=== PATIENT | male | born 1950 | race Caucasian/White ===

== ENCOUNTER 2017-05-14 10:24 | Emergency (ER) | payer MEDICARE ==
[2017-05-14 10:42] VITALS: TEMP 98.6; O2SAT 98
--- NOTE | 2017-05-14 11:21 | RAD ---
EXAM DESCRIPTION: Ankle,Left 3 Views CLINICAL HISTORY: 67 years Male, ankle pain and swelling COMPARISON: None. FINDINGS: 3 views of the left ankle show lateral soft tissue swelling without medial or lateral malleolar fracture. The tibiotalar joint space and talar dome are well-maintained. There is markedly abnormal appearance of the subtalar joint and calcaneus. Is a bone fragment posterior to the talus which does not appear acute. IMPRESSION: Lateral soft tissue swelling without underlying lateral malleolar fracture. Markedly abnormal appearance of the hindfoot suggestive of remote trauma including talar and/or calcaneal fracture. If clinically suspicious of acute hindfoot injury, CT or MRI recommended. Electronically signed by: Lincoln Mchugh MD 05/14/2017 11:19 AM CDT Workstation: [email or web address]
--- NOTE | 2017-05-14 11:35 | ED.PDOC ---
History of Present Illness - General Chief Complaint: Lower Extremity Injury Time Seen by Provider: 05/14/17 10:46 Source: patient Exam Limitations: no limitations - History of Present Illness Initial Comments: the patient is a 67-year-old male presenting to the emergency room secondary toleft ankle and foot pain The patient has recently started a new job and has had to walk extensively for the first few days of it. 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 He has not had this level of activity on it in a long time. He did notinjure it at work that he knows of this week. He simply used a lot. At no point did he have any acute pain. He is neurovascularly preserved. There is some swelling around the ankle and foot. He has some discomfort palpation surrounding the lateral and medial malleolus as well as the foot posteriorly. There is some soreness with both active and passive range of motion. No crepitus. No bruising. No obvious new deformity. Timing/Duration: 24 hours Severity: moderate Improving Factors: immobilization Worsening Factors: movement Associated Symptoms: denies symptoms Allergies/Adverse Reactions: Allergies NO KNOWN ALLERGY Allergy (Verified 05/14/17 10:42) Review of Systems - Review of Systems Constitutional: States: no symptoms reported EENTM: States: no symptoms reported Respiratory: States: no symptoms reported Cardiology: States: no symptoms reported Gastrointestinal/Abdominal: States: no symptoms reported Genitourinary: States: no symptoms reported Musculoskeletal: States: see HPI Skin: States: no symptoms reported Neurological: States: no symptoms reported Endocrine: States: no symptoms reported Past Medical History (General) - Patient Medical History Hx Hypertension: Yes Hx Diabetes: Yes Surgical History: other - Social History Hx Tobacco Use: No Hx Alcohol Use: No Hx Substance Use: No Hx Substance Use Treatment: No Hx Depression: No Family Medical History - Family History Mother Family History: Unknown Physical Exam - Physical Exam General Appearance: Alert, Comfortable, No apparent distress Eye Exam: bilateral normal Ears, Nose, Throat: hearing grossly normal Neck: full range of motion Respiratory: no respiratory distress, no accessory muscle use Cardiovascular/Chest: normal peripheral pulses Peripheral Pulses: dorsalis pedis,right: 2+, dorsalis pedis,left: 2+, posterior tibialis,right: 2+, posterior tibialis,left: 2+ Gastrointestinal/Abdominal: other - obese Rectal Exam: deferred Extremity: normal range of motion, no calf tenderness, normal capillary refill, other - the patient does have +1 edema to bilateral lower extremities. Left ankle and foot as described above. 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 This appears to be a flare of osteoarthritis at a previous injury site. The patient is to avoid walking extensively over the next 3-4 days. Ibuprofen or Aleve can be used with food to help reduce discomfort. additionally wrapping with an Andrey wrap during the day may also help to reduce swelling and discomfort. ER warnings were given. No obvious new fracture or dislocation is seen on x-ray. Chronic changes from previous injuries are noted. Departure - Departure Clinical Impression: Localized osteoarthrosis, ankle and foot Qualifiers: Laterality: left Qualified Code(s): M19.072 - Primary osteoarthritis, left ankle and foot Disposition: Discharge to Home or Self Care Condition: Fair Departure Forms: ED Discharge - Pt. Copy, Patient Portal Self Enrollment Instructions: DI for Arthritis Diet: regular diet Activity: increase activity as tolerated Referrals: Humberto Devlin MD [Primary Care Provider] - 1-2 Weeks Additional Instructions: the patient is 67-year-old male presenting secondary to left ankle and foot pain after a marked increase in usage at his new job. This appears to be a flare of osteoarthritis at a previous injury site. The patient is to avoid walking extensively over the next 3-4 days. Ibuprofen or Aleve can be used with food to help reduce discomfort. additionally wrapping with an Andrey wrap during the day may also help to reduce swelling and discomfort. ER warnings were given. No obvious new fracture or dislocation is seen on x-ray. Chronic changes from previous injuries are noted.
[2017-05-14 12:07] VITALS: BP 124/74
== END 2017-05-14 12:07 | disposition home or self-care (01) ==
LOC: ER 10:24
DX: M19.072 Primary osteoarthritis, left ankle and foot (principal); I10 Essential (primary) hypertension; E11.9 Type 2 diabetes mellitus without complications

== ENCOUNTER 2018-03-20 22:54 | Emergency (ER) | payer MEDICARE ==
[2018-03-20 23:14] VITALS: BP 111/76; TEMP 98; O2SAT 95
--- NOTE | 2018-03-20 23:16 | ED.PDOC ---
History of Present Illness - General Chief Complaint: ENT Problem Stated Complaint: rt ear bleed Time Seen by Provider: 03/20/18 23:03 Source: patient Exam Limitations: no limitations - History of Present Illness Initial Comments: after a shower earlier tonight he trimmed his ears with an electric january. afterwards he thought he saw blood & his hearing was decreased. he thinks he cut himself with the january & since he is a diabetic & he was worried about infection. Timing/Duration: abrupt, this evening Severity: mild EENT Location: ear (R) Prearrival Treatment: no prearrival treatment Improving Factors: nothing Worsening Factors: nothing Associated Symptoms: change in hearing Allergies/Adverse Reactions: Allergies NO KNOWN ALLERGY Allergy (Verified 05/14/17 10:42) Review of Systems - Review of Systems Constitutional: States: no symptoms reported EENTM: States: see HPI, ear discharge, other - right ear feels clogged. Denies : ear pain Past Medical History (General) - Patient Medical History Hx Hypertension: Yes Hx Diabetes: Yes Surgical History: other - Vaccination History Hx Tetanus, Diphtheria Vaccination: No Hx Influenza Vaccination: No Hx Pneumococcal Vaccination: No - Social History Hx Tobacco Use: Yes - now uses electric ones Hx Alcohol Use: No Hx Substance Use: No Hx Substance Use Treatment: No Hx Depression: No - Female History Patient is a Female of Child Bearing Age (10 -59 yrs old): No Patient : No Family Medical History - Family History Mother Family History: Unknown Physical Exam - Physical Exam General Appearance: Alert, Comfortable, No apparent distress, Other - no mastoid pain Ear Exam: right ear: auricle normal, canal normal, other - cerumen impaction, no wound or blood seen Nasal Exam: normal inspection Neck: supple, normal inspection Neurologic: alert, normal mood/affect, oriented x 3 Skin Exam: normal color, warm/dry Progress - Progress Progress: 03/21/18 06:38 cerumen impaction otherwise normal; instructed on sxs of OE to be aware of Departure - Departure Clinical Impression: Cerumen impaction Qualifiers: Laterality: right Qualified Code(s): H61.21 - Impacted cerumen, right ear Disposition: Discharge to Home or Self Care Condition: Fair Departure Forms: ED Discharge - Pt. Copy, Patient Portal Self Enrollment Instructions: DI for Ear Pain-Adult Comments: follow up with your doctor for any pain or new symptoms
== END 2018-03-20 23:23 | disposition home or self-care (01) ==
LOC: ER 22:54
DX: H61.21 Impacted cerumen, right ear (principal); I10 Essential (primary) hypertension; E11.9 Type 2 diabetes mellitus without complications; F17.290 Nicotine dependence, other tobacco product, uncomplicated

== ENCOUNTER → 2018-04-23 | Outpatient (CLI) | payer MEDICARE ==
--- NOTE | 2018-04-23 21:31 | MRI ---
EXAM DESCRIPTION: Lumbar Spine w/o Contrast : Magnetic Resonance Imaging. CLINICAL HISTORY: DEGENERATION OF VERTEBRAL DISC COMPARISON: None. TECHNIQUE: Multiplanar, multiple standard sequences, non contrast MRI, lumbar spine. FINDINGS: For the purposes of this report, the L5 vertebra is considered to be transitional and partially sacralized. Designation level of conus termination is T12-L1. L5-S1 disc is best seen on T2 axial sequence, image 2. Disc is desiccated and posterior disc space is rudimentary. No disc bulging. Sacralization of the bilateral foramina and facets. No canal or foraminal stenosis. L4-5: Moderate disc space loss and diffuse desiccation. Anterior disc osteophyte bulge as well as posterior disc osteophyte bulge 5 mm to the left of midline encroaching on the descending left L5 nerve and left lateral recess stenosis. Trace retrolisthesis. Disc osteophyte complex encroaching on the right foramen which is stenotic and encroaching on the exiting right L4 nerve. Moderate stenosis left foramen and impingement of the left L4 nerve. L3-4: Disc desiccation and anterior bulge with endplate ridging. Posterior tiny broad-based 3 mm bulge. Trace retrolisthesis. Modic type I endplate reactive changes to the right of midline with disc osteophyte complex encroaching on the foramen and soft tissues moderate foraminal narrowing. Mild to moderate left foraminal narrowing. Right side flavum ligament hypertrophy and facet arthrosis. Mild canal narrowing. L2-3: Disc desiccation anterior bulging and endplate ridging. Posterior tiny disc bulge is broad-based. Moderate flavum ligament hypertrophy and facet arthrosis encroaching on the posterior thecal sac. AP canal diameter 9 mm. Bilateral mild foraminal narrowing more on the right. Large concavity in the superior L2 endplate almost 50% in depth with no marrow edema in the vertebral body or bilateral pedicles. Minimal marrow edema superior endplate anteriorly. Approximately 2 mm retropulsion. L1-2: Desiccation of the disc with minimal fluid in the defect of the S2 endplate. No significant bulging. Minimal facet arthrosis. Bilateral foramina are patent. T12-L1: Trace anterolisthesis. Anterior disc bulging and endplate ridging. Minimal disc desiccation. Minimal posterior disc bulge. Mild canal narrowing. Bilateral mild ligament hypertrophy abutting the conus which terminates at this level. Bilateral mild foraminal narrowing. Spondylosis endplate changes and Schmorl's nodes and bulging disc posteriorly also at T11-12 but no canal or foraminal stenosis. L2-L4 levoscoliosis. Paravertebral soft tissues minimal muscle atrophy paraspinal region.. Normal marrow signal in the remaining vertebral bodies and the posterior elements. Vertebral bodies are not compressed at any level. IMPRESSION: 1. 4 lumbar type vertebra with L5 partially sacralized. L5-S1 disc space is relatively rudimentary posteriorly. No disc bulging. No canal or foraminal stenosis. Consider correlation with 3 view lumbosacral spine series; AP and lateral thoracic spine series for rib counting purposes. 2. Right posterior disc osteophyte bulge to the left of midline encroaching on the left subarticular recess which is stenotic and the left L5 nerve. Spondylosis on the right disc space encroaching on the foramen and the exiting right L4 nerve. Facet and disc encroaching on the left foramen and the left L4 nerve. 3. Mild spondylosis L3-4 on the right with disc osteophyte complex causing moderate foraminal narrowing. Mild canal narrowing. 4. Posterior elements at L2-3 with hypertrophy and arthrosis and bulging disc resulting in mild canal stenosis. 5. Old compression injury of the superior L2 endplate with minimal spondylosis. No canal stenosis at L1-2. Spondylosis T12-L1 and T11-12. L2 4 levoscoliosis. Electronically signed by: Santosh Horta MD 04/23/2018 9:29 PM CDT
== END ==
LOC: MRI 10:21
PROVIDERS: ATTEND Nurse Practitioner Family
DX: M51.36 Other intervertebral disc degeneration, lumbar region (principal); M48.061 Spinal stenosis, lumbar region without neurogenic claudication

== ENCOUNTER → 2019-03-22 | Outpatient (CLI) | payer MEDICARE, MEDICAID ==
--- NOTE | 2019-03-22 11:24 | MRI ---
EXAM DESCRIPTION: MR arthrogram left shoulder CLINICAL HISTORY: Shoulder pain COMPARISON: None. TECHNIQUE: Multiplanar, multisequence MR images of the left shoulder with intra-articular gadolinium contrast FINDINGS: Structurally significant high-grade partial tear of the supraspinatus tendon. Diffuse tendinosis. High-grade interstitial insertional tear spans 1.3 cm craniocaudal with interstitial retraction about 5 mm. Muscle volume is mildly decreased with grade 2 fatty infiltration Infraspinatus tendinosis. Partial articular and interstitial tear anteriorly from the myotendinous junction to the insertion. A tiny resorptive cyst at the anterior articular insertion. Minimal fluid tracks back along the anterior myotendinous junction. Muscle volume is mildly decreased with grade 2 fatty infiltration. Teres minor tendon intact with moderate muscle volume loss and grade 2 fatty aeration. High-grade subscapularis tendon tear sparing thin bursal fibers. Moderate muscle volume loss and grade 2 fatty infiltration Long head biceps tendon subluxation over the lesser tuberosity with a cyst and mild edema in the lesser tuberosity. Long head biceps tendinosis and short segment interstitial partial tear at the level of subluxation. Tear of the labral anchor/superior labrum with a small sublabral cyst in the superior glenoid rim. Blunting of the posterior superior labrum. Intralabral signal and mild fraying of the articular surface of the posterior labrum with a radial component of tear posterior inferior. A tiny paralabral cyst along the posterior glenoid rim. Anterior sublabral glenoid rim osteophyte ridge with blunting and partial detachment of the anterior and inferior labrum. Moderate acromioclavicular osteoarthritis. Joint effusion. Distal clavicular osteophyte indents the supraspinatus. Small inferior lateral acromial spur IMPRESSION: Structurally significant high-grade partial interstitial tear of the supraspinatus tendon superimposed on diffuse tendinosis Partial articular and interstitial tear of the anterior infraspinatus tendon High-grade partial tear of the subscapularis tendon. Complete tear from the lesser tuberosity with intact bursal fibers to the greater tuberosity. Associated subluxation partial tear of the long head biceps tendon Circumferential labral degeneration Electronically signed by: Tyree Yeung MD 03/22/2019 11:22 AM CDT
--- NOTE | 2019-03-22 13:34 | RAD ---
EXAM DESCRIPTION: Arthrogram Shoulder Left: RF. CLINICAL HISTORY: PAIN IN LEFT SHOULDER COMPARISON: Post-arthrogram MRI scan of the left shoulder same date. TECHNIQUE: The procedure was explained to the patient with risks and benefits. The patient gave verbal and written consent. Patient supine on the fluoroscopic table with left shoulder in external rotation. The anterior mid superior left glenohumeral joint was localized by fluoroscopy. The skin was marked, then prepped and draped in a sterile fashion. 4 mL of 1% xylocaine , given intradermally and intramuscularly. 5 cc of nonionic contrast was prepared in a syringe. A mixture of 10 cc nonionic contrast, 10 cc of sterile normal saline and 0.1% gadolinium was prepared in a second syringe. A 1.5 cm, 25-gauge needle was introduced into the anterior superior left glenohumeral joint capsule under fluoroscopic visualization. A test injection of 2 cc of the contrast only was performed under fluoroscopy. Additional 8 cc of the contrast mixture was then injected under fluoroscopy. The patient tolerated the procedure well. Patient performed active exercise to distribute the contrast mixture in the joint space. Patient was transferred to the high field MRI suite for multiplanar imaging. No immediate complications. Fluoroscopy time was 1.2 minutes. DAP 4.568 Gy-cm2. Single frontal AP image of left shoulder in external rotation obtained. IMPRESSION: Successful, fluoroscopic-guided arthrogram of the left shoulder prior to MRI scan. Permanent images from this procedure are maintained in the patient's medical record. Electronically signed by: Santosh Horta MD 03/22/2019 1:32 PM CDT
== END ==
LOC: MRI 08:30
PROVIDERS: ATTEND Nurse Practitioner Family
DX: S46.012A Strain of muscle(s) and tendon(s) of the rotator cuff of left shoulder, initial encounter (principal); S46.212A Strain of muscle, fascia and tendon of other parts of biceps, left arm, initial encounter

== ENCOUNTER → 2019-05-12 | Outpatient (CLI) | payer MEDICARE, MEDICAID ==
--- NOTE | 2019-05-12 15:22 | US ---
EXAM DESCRIPTION: Aorta: Ultrasound. CLINICAL HISTORY: AAA SCREENING COMPARISON: MRI lumbar spine 03/24/2018. TECHNIQUE: Transcutaneous scanning: Two-dimensional and Doppler modes. FINDINGS: Abdominal aorta diameter - Proximal: 2.6 x 2.4 cm. Mid: 2.0 x 1.9 cm. Distal: 1.9 x 1.9 cm. Common Iliac diameter - Right: 12.6 mm. Left: 9.4 mm. Other: Minimal atherosclerotic changes. Distal abdominal aorta just above the bifurcation was 2.2 cm on prior MRI study. IMPRESSION: No abdominal aortic aneurysm. No aneurysms in the proximal bilateral common iliac arteries. Electronically signed by: Santosh Horta MD 05/12/2019 3:20 PM CDT
== END ==
LOC: US 09:24
PROVIDERS: ATTEND Nurse Practitioner Family
DX: Z13.6 Encounter for screening for cardiovascular disorders (principal)

== ENCOUNTER → 2019-10-24 | Outpatient (CLI) | payer MEDICARE, MEDICAID ==
--- NOTE | 2019-10-24 15:22 | MRI ---
Study: MRI of the Right Shoulder. Indication: PAIN IN RIGHT SHOULDER Technique: Multiplanar, multi sequence MRI of the right shoulder was obtained without intravenous contrast. Comparison: None. Findings: Truncation of the undersurface of the distal clavicle and acromion, likely postsurgical however no reported history of surgery is given. Small-volume subacromial/subdeltoid bursal fluid. Mild susceptibility artifact superficial to the supraspinatus and infraspinatus tendon insertions as well. Prior rotator cuff tendon repair suspected. Supraspinatus and infraspinatus tendinosis with scattered interstitial fissuring of both tendons and more pronounced low to intermediate grade articular tearing throughout the posterior two thirds infraspinatus tendon insertion. Tear defect measures 9 mm AP by 9 mm transverse transverse and involves up to 50% of expected tendon thickness. No full-thickness rupture or tendon retraction. High-grade articular, effectively full-thickness, fullwidth subscapularis tendon tearing. Mild atrophy and grade 2 fatty infiltration majority of the rotator cuff musculature but with grade 2-3 changes of the subscapularis muscle belly. Long head biceps tendon torn and distally retracted. Circumferential labral truncation and degeneration. Patchy grade 2 and 3 chondrosis throughout the glenohumeral joint. Mild grade 4 chondrosis and subchondral cystic change superior glenoid rim noted as well. Tiny inferior joint line osteophytes. Tiny joint effusion. No acute fracture. Thickening and edema inferior glenohumeral ligament which can be seen with adhesive capsulitis. Impression: Supraspinatus and infraspinatus tendinosis with scattered interstitial fissuring of both tendons as well as low to intermediate grade articular tearing of the posterior two thirds infraspinatus tendon insertion. High-grade articular, effectively full-thickness, fullwidth subscapularis tendon tearing. Atrophy and fatty infiltration rotator cuff musculature above. Long head biceps tendon torn and distally retracted. Mild to moderate glenohumeral joint osteoarthritis with circumferential labral truncation/degeneration and a tiny joint effusion. Adhesive capsulitis. Suspected prior distal clavicular resection and subacromial decompression. Electronically signed by: Emilio Nails MD 10/24/2019 3:20 PM [employer]
== END ==
LOC: MRI 08:00
PROVIDERS: ATTEND Nurse Practitioner Family
DX: S46.011A Strain of muscle(s) and tendon(s) of the rotator cuff of right shoulder, initial encounter (principal); S46.111A Strain of muscle, fascia and tendon of long head of biceps, right arm, initial encounter; M19.011 Primary osteoarthritis, right shoulder; M75.01 Adhesive capsulitis of right shoulder; M75.91 Shoulder lesion, unspecified, right shoulder

== ENCOUNTER 2020-11-19 14:47 | Emergency (ER) | payer MEDICAID, MEDICARE ==
[2020-11-19] MEDS ORDERED: KETOROLAC TROMETHAMINE INJ 60 MG/2 ML VIAL IM ONE (14:56)
--- NOTE | 2020-11-19 14:56 | ED.PDOC ---
History of Present Illness - General Time Seen by Provider: 11/19/20 14:55 - History of Present Illness Initial Comments: PATIENT WITH SEVERE BILATERAL SHOULDER PAIN FOR YEARS FOR WHICH HE TAKES HYDROCODONE AND METHADONE PRESCRIBED BY LMD. HE RAN OUT EARLY AND CANNOT GET REFILLED FOR 3 DAYS SO HE CAME TO THE ER FOR A "SHOT". HE STATES HE HAS MEDICAID SO ITS "NOT A PROBLEM". PATIENT RELATES THAT HE WAS SUPPOSED TO GET A SHOULDER REPLACEMENT, BUT HE HAS NOT FOLLOWED UP WITH ORTHOPEDIST IN YEARS. HE CURRENTLY DOES NOT HAVE AN ORTHOPEDIST, JUST THE PCP WHO PRESCRIBES HIS PAIN MEDICATION. Allergies/Adverse Reactions: Allergies NO KNOWN ALLERGY Allergy (Verified 05/14/17 10:42) Review of Systems - Review of Systems Constitutional: States: no symptoms reported EENTM: States: no symptoms reported Respiratory: States: no symptoms reported Cardiology: States: no symptoms reported Gastrointestinal/Abdominal: States: no symptoms reported Genitourinary: States: no symptoms reported Musculoskeletal: States: no symptoms reported Skin: States: no symptoms reported Neurological: States: no symptoms reported Endocrine: States: no symptoms reported Hematologic/Lymphatic: States: no symptoms reported Past Medical History (General) - Patient Medical History Hx Hypertension: Yes Hx Diabetes: Yes - Vaccination History Hx Tetanus, Diphtheria Vaccination: No Hx Influenza Vaccination: No Hx Pneumococcal Vaccination: No - Social History Hx Tobacco Use: Yes - now uses electric ones Hx Alcohol Use: No Hx Substance Use: No Hx Substance Use Treatment: No Hx Depression: No - Female History Patient : No Family Medical History - Family History Mother Family History: Unknown Physical Exam - Physical Exam General Appearance: Agitated, Alert, Well Developed, Well Groomed, Well Hydrated, Well Nourished Neck: non-tender, full range of motion, supple, normal inspection Cardiovascular/Respiratory: regular rate, rhythm, no M/R/G, normal peripheral pulses, no JVD, normal breath sounds, no respiratory distress Abdominal Exam: non-tender, no organomegaly Back Exam: normal inspection, no CVA tenderness, no vertebral tenderness Shoulder Exam: normal inspection, non-tender, no evidence of injury, normal ROM Elbow/Forearm Exam: normal inspection, non-tender, no evidence of injury Wrist Exam: normal inspection, non-tender Neuro/Tendon: normal sensation, normal tendon functions Mental Status: alert, oriented x 3 Skin Exam: normal color, warm/dry Departure - Departure Clinical Impression: Chronic shoulder pain Qualifiers: Laterality: bilateral Qualified Code(s): M25.511 - Pain in right shoulder; M25.512 - Pain in left shoulder; G89.29 - Other chronic pain Opioid dependence Qualifiers: Substance use status: uncomplicated Qualified Code(s): F11.20 - Opioid dependence, uncomplicated Time of Disposition: 14:56 Disposition: Discharge to Home or Self Care Condition: Good Instructions: Osteoarthritis Referrals: Sandhya Huerta NP [Primary Care Provider] - 1-2 Weeks Additional Instructions: YOU MUST FOLLOW UP ONLY WITH THE DOCTOR PRESCRIBING YOUR HYDROCODONE AND METHADONE FOR REFILLS ON THESE MEDICATIONS. THEY CANNOT BE FILLED IN THE ER OR OTHER OPIOIDS GIVEN.
[2020-11-19 15:05] VITALS: BP 162/102; TEMP 97.7; O2SAT 99
== END 2020-11-19 15:18 | disposition home or self-care (01) ==
LOC: ER 14:47
DX: M25.512 Pain in left shoulder (principal); G89.29 Other chronic pain; F11.20 Opioid dependence, uncomplicated; I10 Essential (primary) hypertension; E11.9 Type 2 diabetes mellitus without complications; F17.290 Nicotine dependence, other tobacco product, uncomplicated